=== PATIENT | female | born 1940 | race Caucasian/White ===

== ENCOUNTER 2017-06-12 10:54 | Outpatient (CLI) | payer MEDICARE, OTHER | END 2017-06-12 10:55 | disposition home or self-care (01) | DRG 556 | LOC: CONVCARE 10:54 | PROVIDERS: ATTEND Orthopaedic Surgery | DX: M25.512 Pain in left shoulder (principal); Z96.612 Presence of left artificial shoulder joint | CPT/HCPCS: 73030 ==

== ENCOUNTER 2018-06-05 06:51 | Day surgery (SDC) | payer MEDICARE, OTHER ==
[2018-06-05] MEDS ORDERED: ACETAZOLAMIDE 250 MG PO ONE (07:12)
[2018-06-05] MEDS: PROPARACAINE HCL 0.5% OPHTHALMIC SOL ONE ×3 (07:21→08:26)
[2018-06-05] MEDS: PHENYLEPHRINE HCL 10% OPHTHAL SOL ONE ×2 (07:21→07:33)
[2018-06-05] MEDS: CYCLOPENTOLATE 1% SOL ONE ×2 (07:22→07:33)
[2018-06-05] MEDS: KETOROLAC 0.5% OPTH 60 DROP SOL ONE ×2 (07:22→07:34)
[2018-06-05] MEDS ORDERED: FENTANYL 100MCG/2ML SOL ONE (08:05)
[2018-06-05] MEDS ORDERED: MIDAZOLAM 2 MG/2 ML SOL ONE (08:06)
[2018-06-05] MEDS ORDERED: LIDOCAINE HCL 1% MPF 30 SOL ONE (08:19)
[2018-06-05] MEDS ORDERED: POVIDONE IODINE 5% SOL ONE (08:19)
[2018-06-05] MEDS: BSS 500 ML 500 ML IR ONE ×2 (08:27→08:31)
[2018-06-05 08:59] VITALS: BP 157/69; PULSE 71; RESP 20; TEMP 97.5; O2SAT 97
== END 2018-06-05 09:20 | disposition home or self-care (01) | DRG 125 ==
LOC: SURG 06:51
PROVIDERS: ATTEND Ophthalmology
DX: H25.9 Unspecified age-related cataract (principal); E11.9 Type 2 diabetes mellitus without complications
CPT/HCPCS: J2250; J3010; A9270-GY; J2001

== ENCOUNTER 2019-03-12 07:33 | Day surgery (SDC) | payer MEDICARE, OTHER ==
[2019-03-12] MEDS ORDERED: LIDOCAINE HCL 1% MPF 30 SOL ONE (07:50)
[2019-03-12] MEDS ORDERED: PROPOFOL 500 MG/50 ML EMU IV ONE (07:50)
[2019-03-12 09:50] VITALS: BP 169/76; PULSE 63; RESP 20; TEMP 97.4; O2SAT 98
== END 2019-03-12 10:12 | disposition home or self-care (01) | DRG 382 ==
LOC: SURG 07:33
PROVIDERS: ATTEND Internal Medicine Gastroenterology
DX: K22.70 Barrett's esophagus without dysplasia (principal); L53.8 Other specified erythematous conditions; Q40.3 Congenital malformation of stomach, unspecified; K44.9 Diaphragmatic hernia without obstruction or gangrene; K21.9 Gastro-esophageal reflux disease without esophagitis; E11.9 Type 2 diabetes mellitus without complications
CPT/HCPCS: 82962; J2001; J2704